=== PATIENT | male | born 1955 ===

== ENCOUNTER 2024-10-04 09:24 | Outpatient (CLI) | payer MEDICARE, BC, SELFPAY ==
--- OUTSIDE RECORDS SUMMARY | 2024-10-04 10:10 | XMS_ITS | Encounter Summary ---
Author Organization [facility] Address [facility] [place] [address] Care Team Providers Care Bench Examiner Name Role Phone Fredy Francisco MD Primary Care Provider [phone] Maoc Pack MD Primary Care Provider [phone] Encounter Details Date Type Department Care Team (Late st Contact Info) Description 12/29/2022 Prep for Procedure [facility] [place] [address] Bowen Bryant MD [address] [facility] [address] [facility] [place] [address] Social History Tobacco Use Types Packs/Day Years Used Date Smoking Tobacco: Never Smokeless Tobacco: Never Alcohol Use Standard Drinks/Week Comments Yes 0 (1 standard drink = 0.6 oz pur e alcohol) Humiliation, Afraid, Rape, and Kick questionnair e Answer Date Recorded Within the last year, have y ou been afraid of your partner or ex-partner? No 11/29/2022 Within the last year, have y ou been humiliated or emotionally abused in other ways by your partner or ex-partner? No Within the last year, have y ou been kicked, hit, slapped, or otherwise physically hurt by your partner or ex-partner? No 11/29/2022 Within the last year, have y ou been raped or forced to have any kind of sexual activity by your partner or ex-partner? No 11/29/2022 AUDIT-C Answer Date Recorded Q1: How often do you have a drink containing alcohol? Patient declined 11/29/2022 Q2: How many drinks containi ng alcohol do you have on a typical day when you are drinking? Patient does not drink 3 Q3: How often do you have si x or more drinks on one occasion? Never 11/29/2022 Overall Financial Resource Strain (CARDIA) Answe r Date Recorded How hard is it for you to pa y for the very basics like food, housing, medical care, and heating? Not very hard 11/29/2022 [facility] - Occupational Stress Questionnaire Answer Date Recorded Do you feel stress - tense, restless, nervous, or anxious, or unable to sleep at night because your mind is troubled all the time - these days? Not at all 11/29/2022 Exercise Vital Sign Answer Date Recorde d On average, how many days pe r week do you engage in moderate to strenuous exercise (like a brisk walk)? 1 day 11/29/2022 On average, how many minutes do you engage in exercise at this level? 30 min 11/29/2022 Hunger Vital Sign Answer Date Recorded Within the past 12 months, y ou worried that your food would run out before you got the money to buy more. Never true 11/30/19 23 Within the past 12 months, t he food you bought just didn't last and you didn't have money to get more. Never true 11/29/2022 PRAPARE - Transportation Answer Date Re corded In the past 12 months, has l ack of transportation kept you from medical appointments or from getting medications? No 01/2023 In the past 12 months, has l ack of transportation kept you from meetings, work, or from getting things needed for daily living? No 11/29/2022 Housing Stability Vital Sign Answer Bert e Recorded In the last 12 months, was t here a time when you were not able to pay the mortgage or rent on time? No 11/29/2022 In the last 12 months, how many places have you lived? 1 11/29/2022 In the last 12 months, was t here a time when you did not have a steady place to sleep or slept in a m[facility]p (including now)? No 11/29/2022 Sex and Gender Information Value Date Recorded Sex Assigned at Male 08/16/2024 9:52 AM FINANCIAL RISK MANAGER Legal Sex Male 12:38 PM FINANCIAL RISK MANAGER Gender Identity Not on file Sexual Orientation Not on file Occupation Industry Job Start Date Job End Date Retired Not on file Not on file Not on file COVID-19 Exposure Response Date Recorded In the last 10 days, have yo u been in contact with someone who was confirmed or suspected to have Coronavirus/COVID-19? No / Unsure 12/31/2022 8:53 AM CDT documented as of this encounter Functional Status * Are you deaf or do you have serious difficulty hearing Answer Date of Assessment Author Status No 11/27/2022 1:16 AM CDT Neil Huang R N Active * Are you blind or do you have serious difficulty seeing, even when wearing glasses? Answer Date of Assessment Author Status No 11/27/2022 1:16 AM CDT Neil Huang R N Active * Do you have serious difficulty walking or climbing stairs? Answer Date of Assessment Author Status No 11/27/2022 1:16 AM CDT Neil Huang R N Active * Do you have difficulty dressing or bathing? Answer Date of Assessment Author Status No 11/27/2022 1:16 AM CDT Neil Huang R N Active * Because of a physical, mental, or emotional condition, do you have difficulty doing errands alone such as visiting a doctor's office or shopping? Answer Date of Assessment Author Status No 11/27/2022 1:16 AM CDT Neil Huang R N Active documented as of this encounter Mental Status * Because of a physical, mental, or emotional condition, do you have serious difficulty concentrating, remembering, or making decisions? Answer Entry Date Author Status No 11/27/2022 1:16 AM CDT Neil Huang RN Active documented in this encounter Plan of Treatment Upcoming Encounters Date Type Department Care Team (Late st Contact Info) Description 10/25/2024 1:00 PM CDT Office Visit [facility] [place] [place] [address] Igor Russo PA [address] [place] [address] 10/30/2024 10:10 AM CDT Laboratory Only [address] [address] Maco Pack MD [address] [place] [address]. [place] [address] 11/06/2024 11:40 AM CDT Office Visit [address] [address] Maco Pack MD [facility] [address] documented as of this encounter Goals Goal Patient Goal Type Associated Problems Recent Progress Patient-Stated? Author Patient will return to prior living situation and remain independent in ADLs upon discharge from hospital Lifestyle No Shweta Verma RN documented as of this encounter Results * (ABNORMAL) BASIC METABOLIC PANEL (12/29/2022 12:00 PM CDT) [facility] GLUCOSE 108(H) 70 - 99 MG/DL 12/29/2022 1:13 PM CDT [facility] BUN 12 7 - 18 MG/DL 12/29/2022 1:13 PM CDT [facility] CREATININE S/P/B 1.06 0.7 - 1.3 MG/DL 12/29/2022 1:13 PM CDT [facility] SODIUM S/P/B 135(L) 136 - 145 MMOL/L 12/29/2022 1:13 PM CDT [facility] POTASSIUM S/P/B 3.9 3.5 - 5.1 MMOL/L 12/29/2022 1:13 PM CDT [facility] CHLORIDE S/P/B 107 100 - 108 MMOL/L 12/29/2022 1:13 PM CDT [facility] CO2 25.6 21 - 32 MMOL/L 12/29/2022 1:13 PM CDT [facility] CALCIUM S/P/B 9.4 8.5 - 10.1 MG/DL 12/29/2022 1:13 PM CDT [facility] ANION GAP 2.4(L) 5 - 15 MMOL/L 12/29/2022 1:13 PM CDT [facility] BUN CREATININE RATIO 11.3 6 - 26 12/29/2022 1:13 PM CDT [facility] GFR ESTIMATE 77(L) >90 ML/MIN/1.7 3 M2 12/29/2022 1:13 PM CDT [facility] Comment: NOTE: eGFR is not calculated for patients <18 years of age. This is an estimated GFR calculation using the new CKD EPI creatinine equation without race and so does not require a correction factor for race. This estimated GFR should not be used for calculating drug doses. 12/29/2022 12:0 0 PM CDT us Bowen Bryant MD LABORATORY Final Res ult [facility] [address] [place] [address], [place] [phone] * (ABNORMAL) CBC W/DIFF AUTOMATED (12/29/2022 12:00 PM CDT) WBC 5.4 4.5 - 11.0 x10'3/uL 12/29/2022 12:52 PM CDT [facility] RBC 4.09(L) 4.70 - 6.10 x10'6/uL 12/29/2022 12:52 PM CDT [facility] HGB 12.9(L) 14.0 - 18.0 G/DL 12/29/2022 12:52 PM CDT [facility] HCT 40.1(L) 43.0 - 54.0 % 12/29/2022 12:52 PM CDT [facility] MCV 98.0(H) 80.0 - 94.0 FL 12/29/2022 12:52 PM CDT [facility] MCH 31.5(H) 27.0 - 31.0 PG 12/29/2022 12:52 PM CDT [facility] MCHC 32.2 32.0 - 36.0 G/DL 12/29/2022 12:52 PM CDT [facility] RDW 13.7 11.5 - 14.5 % 12/29/2022 12:52 PM CDT [facility] PLT 272 130 - 400 x10'3/uL 12/29/2022 12:52 PM CDT [facility] MPV 11.0 9.3 - 12.2 FL 12/29/2022 12:52 PM CDT [facility] DIFFERENTIAL TYPE AUTOMATED DIFFERENTIAL 12/29/2022 12:52 PM CDT [facility] NEUTROPHILS % 54.0 % 12/29/2022 12:52 PM CDT [facility] LYMPHOCYTES % 32.3 % 12/29/2022 12:52 PM CDT [facility] MONOCYTES % 9.6 % 12/29/2022 12:52 PM CDT [facility] EOSINOPHILS 3.5 % 12/29/2022 12:52 PM CDT [facility] BASOPHILS 0.4 % 12/29/2022 12:52 PM CDT [facility] IMMATURE GRANS % 0.2 % 12/30/19 12:52 PM CDT [facility] ABS. NEUTROPHILS TOTAL 2.92 1.80 - 7.70 x10'3/uL 12/29/2022 12:52 PM CDT [facility] ABS. LYMPHOCYTES 1.75 1.00 - 4.80 x10'3/uL 12/29/2022 12:52 PM CDT [facility] ABS. MONOCYTES 0.52 0.30 - 0.82 x10'3/uL 12/29/2022 12:52 PM CDT [facility] ABS. EOSINOPHILS 0.19 0.04 - 0.54 x10'3/uL 12/29/2022 12:52 PM CDT [facility] ABS. BASOPHILS 0.02 0.01 - 0.08 x10'3/uL 12/29/2022 12:52 PM CDT [facility] ABS. IMMATURE GRANULOCYTES 0.01 0.00 - 0.49 x10'3/uL 12/29/2022 12:52 PM CDT [facility] 12/29/2022 12:0 0 PM CDT us Bowen Bryant MD LABORATORY Final Res ult [facility] [address] [place] [address], [place] [phone] * (ABNORMAL) URINALYSIS WI REFLEX TO CULTURE (12/29/2022 11:56 AM CDT) SPECIMEN TYPE URINE CLEAN CATCH 12/29/2022 11:57 AM CDT [facility] COLOR (U) LIGHT ORANGE 12/29/2022 12:56 PM CDT [facility] TRANSPARENCY TURBID 12/29/2022 12:56 PM CDT [facility] SPECIFIC GRAVITY (U) 1.013 1.001 - 1.030 12/29/2022 12:56 PM T [facility] U PH 6.0 5.0 - 9.0 12/29/2022 12:56 PM T [facility] LEUKOCYTES (U) 500(A) NEGATIVE 12/29/2022 12:56 PM CDT [facility] NITRITES NEGATIVE NEGATIVE 12/29/2022 12:56 PM T [facility] PROTEIN (U) 50(H) <30 MG/DL 12/29/2022 12:56 PM T [facility] URINE GLUCOSE NORMAL NORMAL MG/DL 12/29/2022 12:56 PM T [facility] KETONES MG/DL (U) NEGATIVE NEGATIVE MG/DL 12/29/2022 12:56 PM T [facility] UROBILINOGEN NORMAL NORMAL MG/DL 12/29/2022 12:56 PM T [facility] BILIRUBIN (U) NEGATIVE NEGATIVE MG/DL 12/29/2022 12:56 PM T [facility] BLOOD (U) 3+(A) NEGATIVE 12/29/2022 12:56 PM T [facility] CULTURE & SENSITIVITY INDICATED? SPECIMEN SETUP FOR CULTURE 12/29/2022 12:56 PM T [facility] MUCUS RARE /LPF 12/29/2022 12:56 PM T [facility] WBC/HPF 23(H) <6 /HPF 12/29/2022 12:56 PM [facility] RBC/HPF >100(H) <6 /HPF 12/29/2022 12:56 PM T [facility] URINE SPECIMEN OBTAINED BY CLEAN CATCH PROCEDURE / Unknown 12/29/2022 11:56 AM CDT Bowen Bryant MD URINE ORDERABLES Final Re sult [facility] [address] [place] [address], documented in this encounter Visit Diagnoses Diagnosis Preop examination- Primary Preoperative examination, unspecified Uric acid nephrolithiasis Dysuria Calculus of ureter HTN (hypertension) Unspecified essential hypertension Diabetes (CMS/HCC HHS/HCC) documented in this encounter Care Teams Bench Examiner Relationship Specialty Start Date End Date Fredy Francisco MD [address] [address] PCP - General FAMILY PRACTICE 09/20/20 10/10/23 Maco Pack MD [address] [place] [address] PCP - General FAMILY PRACTICE 10/11/23 documented as of this encounter
--- OUTSIDE RECORDS SUMMARY | 2024-10-04 10:10 | XMS_ITS ---
Author Organization [facility] Address [address] [place], [place] [id number] Care Team Providers Care Advertisement Distributor Name Role Phone LAURIE HAZEL Unavailable [phone] Maco Pack Unavailable Unavailable Allergies Allergen (clinical drug ingredient) Drug/Non Drug Allergy documented on EMR Reaction Allergy Type Onset Date Status Lisinopril Unknown Drug Allergy 08/23/2018 activ e REASON FOR VISIT *General care Medications Medication SIG (Take, Route, Frequency, Duration) Notes Start Date End Date Status 24 HR metoprolol succinate 50 MG Extended Release Oral Capsule ORAL 24 HR metoprolol succinate 50 MG Extended Release Oral CapsuleOriginal [id number] HR metoprolol succinate 50 MG Extended Release Oral Capsule *Reorder from [email or web address] for eRx and Interaction Alerts* 08/23/2018 Active metformin hydrochloride 500 MG Oral Tablet ORAL metformin hydrochloride 500 MG Oral TabletOriginal Medicationmetformin hydrochloride 500 MG Oral Tablet *Reorder from [email or web address] for eRx and Interaction Alerts* 08/23/2018 Active Encounters Encounter Location Date Provider Diagnosis [facility] [address] [place], [place] [id number] 08/29/2024 LAURIE HAZEL Fungal infection of nail B35.1 ; Pain in left toe(s) M79.675 ; Hallux rigidus of right foot M20.21 ; Unspecified atherosclerosis of mary's ig[place] arteries of extremities, bilateral legs I70.203 ; Pain in right toe(s) M79.674 and Primary osteoarthritis, right ankle and foot M19.071 Assessments Encounter Date Diagnosis (ICD Code) Assessment Notes Treatment Notes Treatment Clinical Notes Section Notes 08/29/2024 Fungal infection of nail (ICD-10 - B35.1) Nails 1-5 Bilateral were debrided extensively with nail nippers and emery board, reducing length and girth to pink healthy tissue with any subungual debris and necrotic tissue removed 08/29/2024 Pain in left toe(s) (ICD-10 - M79.675) 08/29/2024 Hallux rigidus of right foot (ICD-10 - M20.21) Following skin prep, a total of 3 ccs of a 1-1-1 mix of 0.5% marcaine plain, Kenalog, and dexamethasone sodium phosphate was injected into the patients right first MPJ. 08/29/2024 Unspecified atherosclerosis of mary's igloo arteries of extremities, bilateral legs (ICD-10 - I70.203) 08/29/2024 Pain in right toe(s) (ICD-10 - M79.674) 08/29/2024 Primary osteoarthritis, right ankle and foot (ICD-10 - M19.071) Plan Of Treatment Treatment Notes Assessment Notes Fungal infection of nail Nails 1-5 Bilat eral were debrided extensively with nail nippers and emery board, reducing length and girth to pink healthy tissue with any subungual debris and necrotic tissue removed Hallux rigidus of right foot Following s kin prep, a total of 3 ccs of a 1-1-1 mix of 0.5% marcaine plain, Kenalog, and dexamethasone sodium phosphate was injected into the patients right first MPJ. Next Appt Details Follow Up: 9 weeks, Reason: Provider Name:LAURIE PATIÑO, 10/17/2024 12:40:00 PM, [address], [place], [id number], Provider Name:LAURIE PATIÑO, 11/14/2024 01:20:00 PM, [address], [address], [place], [place], [id number], Progress Notes * KIAH BECERRIL LDOB: [birth year] (68 yo M)Acc No.[id number]:08/29/2024 Patient: KIAH LLANOS Provider: Ash Hazel DPM :1955 A ge:68 Y S ex:Male Date:08/29/2024 Address:[place], [id number] Subjective: * Chief Complaints: * * General care * HPI: H PI: General care P atient presents to the office for diabetic foot care. Patient states that their nails are thickened, elongated and painful. Patient states that it is aggravated by shoe gear. Onset is gradual. Patient denies taking blood thinners. Date last seen by Dr. Pack was 07/2024. Initials sea. * ROS: G eneral / Constitutional: Patient denies c hange in appetite, fatigue, chills, fever.? C ardiovascular: Chest pain d enies. N eurologic: Loss of use of extremity d enies. * Medical History: * Surgical History: * Hospitalization/Major Diagno stic Procedure: * Family History: F ather: PRN - Father: :: Cancer,,known absent . M other: PRN - Mother: . B rother: SIB - Brother: . S ister: SIB - Sister: . * Social History: M igrated Social History: M igrated Social History: History of tobacco use : , Smoking Status : Never smoked. * Medications: T aking24 HR metoprolol succinate 50 MG Extended Release Oral Capsule ORAL , Notes to Pharmacist: 24 HR metoprolol succinate 50 MG Extended Release Oral CapsuleOriginal [id number] HR metoprolol succinate 50 MG Extended Release Oral Capsule *[facility] for [facility] and Interaction Alerts*metformin hydrochloride 500 MG Oral Tablet ORAL , Notes to Pharmacist: metformin hydrochloride 500 MG Oral TabletOriginal Medicationmetformin hydrochloride 500 MG Oral Tablet *[facility] for [facility] and Interaction Alerts*Taking 24 HR metoprolol succinate 50 MG Extended Release Oral Capsule ORAL , Notes to Pharmacist: 24 HR metoprolol succinate 50 MG Extended Release Oral CapsuleOriginal [id number] HR metoprolol succinate 50 MG Extended Release Oral Capsule *[facility] for [facility] and Interaction Alerts*Taking metformin hydrochloride 500 MG Oral Tablet ORAL , Notes to Pharmacist: metformin hydrochloride 500 MG Oral TabletOriginal Medicationmetformin hydrochloride 500 MG Oral Tablet *Reorder from [employer] for eRx and Interaction Alerts* * Allergies: L isinopril: Allergy - Onset Date 08/23/2018 Objective: * Vitals: * Examination: P hysical Examination: Gen: T he patient is awake, alert, well developed, well groomed and well nourished. They are in no apparent distress. . Musc: F oot structure is normal bilateral. Muscle strength is 5/5 to all joints bilaterally. Pain on palpation of right 1st metatarsal phalangeal joint. Limited range of motion noted at the first metatarsal phalangeal joint . Derm: T here is absent hair growth on bilateral feet. There are pigmentary changes of bilateral foot. The skin color is red. The skin texture is thin and shiny. Distal cooling noted in bilateral feet. Nails are thick, discolored, and dystrophic with subungual debris. They are painful to palpation. . Neuro: G rossly intact to light touch bilateral . Vasc: P osterior tibialis pulse 0/4 bilaterally. Dorsalis pedis pulse 0/4 bilaterally. No edema noted. Capillary fill time > 3 seconds to all digits. . Assessment: * Assessment: 1. F ungal infection of nail - B35.1 (Primary) 2 . P ain in left toe(s) - M79.675 3 . H allux rigidus of right foot - M20.21 4 . U nspecified atherosclerosis of mary's ig[place] arteries of extremities, bilateral legs - I70.203 5 . P ain in right toe(s) - M79.674 6 . P rimary osteoarthritis, right ankle and foot - M19.071 Plan: * Treatment: 2. H allux rigidus of right foot Notes: Following skin prep, a total of 3 ccs of a 1-1-1 mix of 0.5% marcaine plain, Kenalog, and dexamethasone sodium phosphate was injected into the patients right first MPJ. * Procedure Codes: 2 0600 DRAIN/INJECT, JOINT/BURSA, Modifiers: RT * Follow Up: 9 weeks * Billing Information: * Visit Code: 86245 Office Visit, Est Pt., Level 3. Modifiers: 25 * Procedure Codes: DRAIN/INJECT, JOINT/BURSA. Modifiers: RT * NT LOADER Sign off status: Completed true * Provider: Ash Hazel DPM Date: 0 08/29/2024 Generated for Zahira Fregoso/Abril on: 0 10/04/2024 10:10 AM CDT History and Physical Notes * HPI (History of Present Illness) Category Sub-Category Detail Notes Category Not es HPI General care Patient presents to the office for diabetic foot care. Patient states that their nails are thickened, elongated and painful. Patient states that it is aggravated by shoe gear. Onset is gradual. Patient denies taking blood thinners. Date last seen by Dr. Pack was 07/2024. Initials sea Examination Category Sub-Category Detail Notes Category Not es Physical Examination Gen: The patient is awake, alert, well developed, well groomed and well nourished. They are in no apparent distress. Vasc: Posterior tibialis p ulse 0/4 bilaterally. Dorsalis pedis pulse 0/4 bilaterally. No edema noted. Capillary fill time > 3 seconds to all digits. Neuro: Grossly intact to li ght touch bilateral Musc: Foot structure is no rmal bilateral. Muscle strength is 5/5 to all joints bilaterally. Pain on palpation of right 1st metatarsal phalangeal joint. Limited range of motion noted at the first metatarsal phalangeal joint Derm: There is absent hair growth on bilateral feet. There are pigmentary changes of bilateral foot. The skin color is red. The skin texture is thin and shiny. Distal cooling noted in bilateral feet. Nails are thick, discolored, and dystrophic with subungual debris. They are painful to palpation.
--- OUTSIDE RECORDS SUMMARY | 2024-10-04 10:10 | XMS_ITS ---
Author Organization [facility] Address [address] [place], [place] [address] Care Team Providers Care Websphere Architect Name Role Phone LAURIE HAZEL Unavailable [phone] Maco Pack Unavailable Unavailable Allergies Allergen (clinical [...] succinate 50 MG Extended Release Oral CapsuleOriginal [id number] HR metoprolol succinate 50 MG Extended Release Oral Capsule *Reorder from [facility] for eRx and Interaction Alerts* 08/23/2018 Active metformin hydrochloride 500 MG Oral Tablet ORAL metformin hydrochloride 500 MG Oral TabletOriginal Medicationmetformin hydrochloride 500 MG Oral Tablet *Reorder from [facility] for eRx and Interaction Alerts* 08/23/2018 Active Encounters Encounter Location Date Provider Diagnosis [facility] [address] [place], [place] [id number] 04/25/2024 LAURIE HAZEL Fungal infection of nail B35.1 ; Pain in left toe(s) M79.675 ; Hallux rigidus of right foot M20.21 ; Unspecified atherosclerosis of [place] arteries of extremities, bilateral legs I70.203 ; Pain in right toe(s) M79.674 and Primary osteoarthritis, right ankle and foot M19.071 Assessments Encounter Date Diagnosis (ICD Code) Assessment Notes Treatment Notes Treatment Clinical Notes Section Notes 04/25/2024 Fungal infection of nail (ICD-10 - B35.1) Nails 1-5 Bilateral were debrided extensively with nail nippers and emery board, reducing length and girth to pink healthy tissue with any subungual debris and necrotic tissue removed 04/25/2024 Pain in left toe(s) (ICD-10 - M79.675) 04/25/2024 Hallux rigidus of right foot (ICD-10 - M20.21) 04/25/2024 Unspecified atherosclerosis of tan[place]ross arteries of extremities, bilateral legs (ICD-10 - I70.203) 04/25/2024 Pain in right toe(s) (ICD-10 - M79.674) 04/25/2024 Primary osteoarthritis, right ankle and foot (ICD-10 - M19.071) 04/25/2024 Other Plan Of Treatment Treatment Notes Assessment Notes Fungal infection of nail Nails 1-5 Bilat eral were debrided extensively with nail nippers and emery board, reducing length and girth to pink healthy tissue with any subungual debris and necrotic tissue removed Next Appt Details Follow Up: 9 weeks, Reason: Provider Name:LAURIE PATIÑO, 10/17/2024 12:40:00 PM, [address], [place], [id number], Provider Name:LAURIE PATIÑO, 11/14/2024 01:20:00 PM, [address], [place], [place], [id number], Progress Notes * KIAH BECERRIL LDOB: 6 (68 yo M)Acc No.[id number]:04/25/2024 Patient: Oswaldo ALFONSO KIAH Lorene Provider: Ash Hazel DPM :1955 A ge:68 Y S ex:Male Date:04/25/2024 Address:[address] [place], [place] [id number] Subjective: * Chief Complaints: * * General care * HPI: H PI: General care P atient presents to the office for diabetic foot care. Patient states that their nails are thickened, elongated and painful. Patient states that it is aggravated by shoe gear. Onset is gradual., Patient denies taking blood thinners., Date last seen by Dr. Pack was 3 months ago., Initials mf. * ROS: G eneral / Constitutional: Patient denies c hange in appetite, fatigue, chills, fever.? C ardiovascular: Chest pain d enies. N eurologic: Loss of use of extremity d enies. * Medical History: * Surgical History: * Hospitalization/Major Diagno stic Procedure: * Family History: F ather: PRN - Father: :: Cancer,,known absent . M other: PRN - Mother: . Claudia nathan: SIB - Brother: . S ister: SIB - Sister: . * Social History: M igrated Social History: M igrated Social History: History of tobacco use : , Smoking Status : Never smoked. * Medications: T aking24 HR metoprolol succinate 50 MG Extended Release Oral Capsule ORAL , Notes to Pharmacist: 24 HR metoprolol succinate 50 MG Extended Release Oral CapsuleOriginal [id number] HR metoprolol succinate 50 MG Extended Release Oral Capsule [facility]*metformin hydrochloride 500 MG Oral Tablet ORAL , Notes to Pharmacist: metformin hydrochloride 500 MG Oral TabletOriginal Medicationmetformin hydrochloride 500 MG Oral Tablet *[facility] Interaction [facility]s*Taking 24 HR metoprolol succinate 50 MG Extended Release Oral Capsule ORAL , Notes to Pharmacist: 24 HR metoprolol succinate 50 MG Extended Release Oral CapsuleOriginal [id number] HR metoprolol succinate 50 MG Extended Release Oral Capsule [facility]*Taking metformin hydrochloride 500 MG Oral Tablet ORAL , Notes to Pharmacist: metformin hydrochloride 500 MG Oral TabletOriginal Medicationmetformin hydrochloride 500 MG Oral Tablet *[facility] and Interaction [facility]* * Allergies: [...] M20.21 4 . U nspecified atherosclerosis of tanacross arteries of extremities, bilateral legs - I70.203 5 . P ain in right toe(s) - M79.674 6 . P rimary osteoarthritis, right ankle and foot - M19.071 Plan: * Treatment: * Procedure Codes: * Follow Up: 9 weeks * Billing Information: * Visit Code: 87272 Office Visit, Est Pt., Level 3. * Procedure Codes: * Sign off status: Completed true * Provider: Ash Hazel DPM Date: Generated for Zahira goldstein/Niles/Abril on: 0 10/04/2024 10:10 AM CDT History and Physical Notes * HPI (History of Present Illness) Category Sub-Category Detail Notes Category Not es HPI General care Patient presents to the office for diabetic foot care. Patient states that their nails are thickened, elongated and painful. Patient states that it is aggravated by shoe gear. Onset is gradual., Patient denies taking blood thinners., Date last seen by Dr. Pack was 3 months ago., Initials mf Examination Category Sub-Category Detail Notes Category Not [...]
--- OUTSIDE RECORDS SUMMARY | 2024-10-04 10:11 | XMS_ITS | Referral Summary ---
Author Organization [facility] Address [address] [place] [address] Care Team Providers Care Ceramic Coater Machine Name Role Phone Unavailable Primary Care Provider Unavailabl e Source Comments [facility],non-owned Affiliates and Associated Physician Practices is amultiple site organization consisting of ambulatory clinics and hospital sitesin [place], [place] and [place]. This disclosure is being madepursuant to the Care Everywhere program and may not contain all information available regarding this patient. Last updated 18.[facility] Social History Tobacco Use Types Packs/Day Years Used Date Smoking Tobacco: Never Assessed Sex and Gender Information Value Date Recorded Sex Assigned at Not on file Gender Identity Not on file Sexual Orientation Not on file Plan of Treatment Not on file Juan Amanda Personal/Family Self 1955
--- OUTSIDE RECORDS SUMMARY | 2024-10-04 10:11 | XMS_ITS | Patient Health Record ---
Author Organization [facility] Address [address] [place], [place] [id number] Care Team Providers Care Oncology Social Worker Name Role Phone LAURIE BILLY Unavailable [phone] Maco Pack Unavailable Unavailable Allergies Allergen (clinical drug ingredient) Drug/Non Drug Allergy documented on EMR Reaction Allergy Type Onset Date Status Lisinopril Unknown Drug Allergy 08/23/2018 activ e Reason For Referral No Information Medications Medication SIG (Take, Route, Frequency, Duration) Notes Start Date End Date Status 24 HR metoprolol succinate 50 MG Extended Release Oral Capsule ORAL 24 HR metoprolol succinate 50 MG Extended Release Oral CapsuleOriginal [id number] HR metoprolol succinate 50 MG Extended Release Oral Capsule *Reorder from [facility] for eRx and Interaction Alerts* 08/23/2018 Active metformin hydrochloride 500 MG Oral Tablet ORAL metformin hydrochloride 500 MG Oral TabletOriginal Medicationmetformin hydrochloride 500 MG Oral Tablet *Reorder from [facility] for eRx and Interaction Alerts* 08/23/2018 Active Immunizations Vaccine Route Administration Date Status Comme nts Influenza, high dose seasonal Unknown 07/24/2022 Admini stered Influenza, high dose seasonal Unknown 08/13/2023 Admini stered Vital Signs Height-cm 167.64 cm 06/27/2024 Weight-kg 111.13 kg 06/27/2024 Height 66.00 in 06/27/2024 Weight 245 lbs 06/27/2024 BMI 39.54 kg/m2 06/27/2024 Encounters Encounter Location Date Provider Diagnosis [facility] [address] [place], [place] [id number] 12/06/2023 LAURIE [place] Fungal infection of nail B35.1 ; Pain in left toe(s) M79.675 ; Hallux rigidus of right foot M20.21 ; Unspecified atherosclerosis of [place] arteries of extremities, bilateral legs I70.203 ; Pain in right toe(s) M79.674 and Primary osteoarthritis, right ankle and foot M19.071 [facility] [address] [id number] 02/07/2024 LAURIE [place] Fungal infection of nail B35.1 ; Pain in left toe(s) M79.675 ; Hallux rigidus of right foot M20.21 ; Unspecified atherosclerosis of [place] arteries of extremities, bilateral legs I70.203 ; Pain in right toe(s) M79.674 and Primary osteoarthritis, right ankle and foot M19.071 [facility] [address] [id number] 04/25/2024 LAURIE [place] Fungal infection of nail B35.1 ; Pain in left toe(s) M79.675 ; Hallux rigidus of right foot M20.21 ; Unspecified atherosclerosis of [place] arteries of extremities, bilateral legs I70.203 ; Pain in right toe(s) M79.674 and Primary osteoarthritis, right ankle and foot M19.071 [facility] [address] [id number] 06/27/2024 LAURIE [place] Fungal infection of nail B35.1 ; Pain in left toe(s) M79.675 ; Hallux rigidus of right foot M20.21 ; Unspecified atherosclerosis of [place] arteries of extremities, bilateral legs I70.203 ; Pain in right toe(s) M79.674 and Primary osteoarthritis, right ankle and foot M19.071 [facility] [address] [id number] 08/29/2024 LAURIE [place] Fungal infection of nail B35.1 ; Pain in left toe(s) M79.675 ; Hallux rigidus of right foot M20.21 ; Unspecified atherosclerosis of [place] arteries of extremities, bilateral legs I70.203 ; Pain in right toe(s) M79.674 and Primary osteoarthritis, right ankle and foot M19.071 Assessments Encounter Date Diagnosis (ICD Code) Assessment Notes Treatment Notes Treatment Clinical Notes Section Notes 12/06/2023 Pain in left toe(s) (ICD-10 - M79.675) 12/06/2023 Fungal infection of nail (ICD-10 - B35.1) Nails 1-5 Bilateral were debrided extensively with nail nippers and emery board, reducing length and girth to pink healthy tissue with any subungual debris and necrotic tissue removed 02/07/2024 Fungal infection of nail (ICD-10 - B35.1) Nails 1-5 Bilateral were debrided extensively with nail nippers and emery board, reducing length and girth to pink healthy tissue with any subungual debris and necrotic tissue removed 04/25/2024 Fungal infection of nail (ICD-10 - B35.1) Nails 1-5 Bilateral were debrided extensively with nail nippers and emery board, reducing length and girth to pink healthy tissue with any subungual debris and necrotic tissue removed 06/27/2024 Fungal infection of nail (ICD-10 - B35.1) Nails 1-5 Bilateral were debrided extensively with nail nippers and emery board, reducing length and girth to pink healthy tissue with any subungual debris and necrotic tissue removed 08/29/2024 Fungal infection of nail (ICD-10 - B35.1) Nails 1-5 Bilateral were debrided extensively with nail nippers and emery board, reducing length and girth to pink healthy tissue with any subungual debris and necrotic tissue removed 08/29/2024 Pain in left toe(s) (ICD-10 - M79.675) 06/27/2024 Pain in left toe(s) (ICD-10 - M79.675) 04/25/2024 Pain in left toe(s) (ICD-10 - M79.675) 02/07/2024 Pain in left toe(s) (ICD-10 - M79.675) 12/06/2023 Hallux rigidus of right foot (ICD-10 - M20.21) 12/06/2023 Unspecified atherosclerosis of [place] arteries of extremities, bilateral legs (ICD-10 - I70.203) 02/07/2024 Hallux rigidus of right foot (ICD-10 - M20.21) 04/25/2024 Hallux rigidus of right foot (ICD-10 - M20.21) 06/27/2024 Hallux rigidus of right foot (ICD-10 - M20.21) 08/29/2024 Hallux rigidus of right foot (ICD-10 - M20.21) Following skin prep, a total of 3 ccs of a 1-1-1 mix of 0.5% marcaine plain, Kenalog, and dexamethasone sodium phosphate was injected into the patients right first MPJ. 08/29/2024 Unspecified atherosclerosis of [place] arteries of extremities, bilateral legs (ICD-10 - I70.203) 06/27/2024 Unspecified atherosclerosis of [place] arteries of extremities, bilateral legs (ICD-10 - I70.203) 02/07/2024 Unspecified atherosclerosis of [place] arteries of extremities, bilateral legs (ICD-10 - I70.203) 04/25/2024 Unspecified atherosclerosis of [place] arteries of extremities, bilateral legs (ICD-10 - I70.203) 12/06/2023 Pain in right toe(s) (ICD-10 - M79.674) 12/06/2023 Primary osteoarthritis, right ankle and foot (ICD-10 - M19.071) 02/07/2024 Pain in right toe(s) (ICD-10 - M79.674) 04/25/2024 Pain in right toe(s) (ICD-10 - M79.674) 06/27/2024 Pain in right toe(s) (ICD-10 - M79.674) 08/29/2024 Pain in right toe(s) (ICD-10 - M79.674) 04/25/2024 Primary osteoarthritis, right ankle and foot (ICD-10 - M19.071) 02/07/2024 Primary osteoarthritis, right ankle and foot (ICD-10 - M19.071) 06/27/2024 Primary osteoarthritis, right ankle and foot (ICD-10 - M19.071) 08/29/2024 Primary osteoarthritis, right ankle and foot (ICD-10 - M19.071) 12/06/2023 Other Following skin prep, a total of 3 ccs of a 1-1-1 mix of 0.5% marcaine plain, Kenalog, and dexamethasone sodium phosphate was injected into the patients right first MPJ. 02/07/2024 Other Following skin prep, a total of 3 ccs of a 1-1-1 mix of 0.5% marcaine plain, Kenalog, and dexamethasone sodium phosphate was injected into the patients right first MPJ. 04/25/2024 Other Plan Of Treatment Next Appt Details Provider Name:LAURIE PATIÑO, 10/17/2024 12:40:00 PM, [address], [place], [place], [id number], Provider Name:LAURIE PATIÑO, 11/14/2024 01:20:00 PM, [address], [place], [place], [id number], Insurance Providers Payer Name Payer Address Payer Phone Subscriber Number Group Number Insured Name Patient Relationship to Insured Coverage Start Date Coverage End Date [facility] [address] [place] [address] [phone] [id number] KIAH BECERRIL Self - patient is the insured [facility] ([facility]) ATTN CLAIMS [address] [place] [address] [id number] KIAH BECERRIL Self - patient is the insured for [employer] ([employer]) [address] [place], [place] [phone] [id number] KIAH BECERRIL Self - patient is the insured
--- OUTSIDE RECORDS SUMMARY | 2024-10-04 10:11 | XMS_ITS | Encounter Summary ---
Author Organization [facility] Address [facility] [place] [address] Care Team Providers Care Energy Auditor Name Role Phone Maco Pack MD Primary Care Provider [phone] Encounter Details Date Type Department Care Team (Late st Contact Info) Description 11/19/2023 Kaizena Message Enc [facility] Medical Group Family Medicine [facility] [address] [place] [address] Maoc Pack MD [address] [facility] [place] [address] Follow up on hemorrhoids Social History Tobacco Use Types Packs/Day Years Used Date Smoking Tobacco: Never Smokeless Tobacco: Never Alcohol Use Standard Drinks/Week Comments Not Currently 0 (1 standard drink = 0.6 oz pur e alcohol) Stopped at age 19 Humiliation, Afraid, Rape, and Kick questionnair e [...] you are drinking? Patient does not drink Q3: How often do you have si x or more drinks on one occasion? Never 11/29/2022 Overall Financial Resource Strain (CARDIA) Answe r Date Recorded How hard is it for you to pa y for the very basics like food, housing, medical care, and heating? Not very hard 11/29/2022 PHQ-2 Answer Date Recorded Patient Health Questionnaire-2 Score 0 10/11/2023 [facility] of Occupat ional Health - Occupational Stress [...] place to sleep or slept in a senior care (including now)? No 11/29/2022 Sex and Gender Information Value Date Recorded Sex Assigned at Male 08/16/2024 9:52 AM SCANNER SUPERVISOR Legal Sex Male 12:38 PM SCANNER SUPERVISOR Gender Identity Not on file Sexual Orientation Not on file Occupation Industry Job Start Date Job End Date Retired Not on file Not on file Not on file documented as of this encounter Functional Status [...] CDT Neil Huang R N Active documented in this encounter Plan of Treatment Upcoming Encounters Date Type Department Care Team (Late st Contact Info) Description 10/25/2024 1:00 PM CDT Office Visit [facility] Medical [facility] Orthopedic & Sports Medicine - [place] [address] [place] [address] Igor Russo PA [address] [place] [address] 10/30/2024 10:10 AM CDT Laboratory Only [address] [address] Maco Pack MD [address] [place] [address]. [place] [address] 11/06/2024 11:40 AM CDT Office Visit [facility] - [address] [place] [address] Maco Pack MD [address] [place] [address]. [place] [address] documented as of this encounter Goals Goal Patient Goal Type Associated Problems Recent Progress Patient-Stated? Author Patient will return to prior living situation and remain independent in ADLs upon discharge from hospital Lifestyle No Shweta Verma, RN documented as of this encounter Visit Diagnoses Not on filedocumented in this encounter Care Teams Energy Auditor Relationship Specialty Start Date End Date Maco Pack MD [address] [place] [address]. [place] [address] PCP - General FAMILY PRACTICE 10/11/23 documented as of this encounter
--- OUTSIDE RECORDS SUMMARY | 2024-10-04 10:11 | XMS_ITS | Encounter Summary ---
Author Organization [facility] Address [facility] [place] [address] Care Team Providers Care Credentialing Assistant Name Role Phone Fredy Francisco MD Primary Care Provider [phone] Maco Pack MD Primary Care Provider [phone] Encounter Details Date Type Department Care Team (Late st Contact Info) Description 03/10/2023 Prep for Procedure [facility] Pre-Admission Testing [place], [place] [id number] Bowen Bryant MD 3 [facility] [address] [facility] [place], [place] [id number] Social History Tobacco Use Types Packs/Day Years [...] care, and heating? Not very hard 11/29/2022 [facility] [place] of Occupat ional Health - Occupational Stress [...] place to sleep or slept in a snf (including now)? No 11/29/2022 Sex and Gender Information Value Date Recorded Sex Assigned at Male 08/16/2024 9:52 AM CEO ZIFF DAVIS Legal Sex Male 12:38 PM CEO ZIFF DAVIS Gender Identity Not on file Sexual Orientation [...] Description 10/25/2024 1:00 PM CDT Office Visit [facility] - [place] [address] [place] [address] Igor Russo PA [address] [place] [address] 10/30/2024 10:10 AM CDT Laboratory Only [facility] [address] [place] [address] Maco Pack MD [facility] [place] [address] 11/06/2024 11:40 AM CDT Office Visit [facility] [address] [place] [address] Maco Pack MD [address] [facility] [place] [address] documented as of this encounter Goals Goal Patient Goal Type Associated Problems Recent Progress Patient-Stated? Author Patient will return to prior living situation and remain independent in ADLs upon discharge from hospital Lifestyle No Shweta Verma RN documented as of this encounter Results * PROTIME/INR, VENOUS (03/10/2023 4:53 PM CDT) PROTIME 12.3 10.2 - 12.9 SEC 03/10/2023 5:29 PM CDT [facility] INR 1.0 03/10/2023 5:29 PM CDT [facility] Comment: Recommended INR Therapeutic Goals: 2.0-3.0 Routine Therapy 2.5-3.5 Mechanical Prosthetic Valves (High Risk) 03/10/2023 4:53 PM CDT us Bowen Bryant MD LABORATORY Final Res ult [facility] [address] [place] [address], [place] [phone] * PTT, PARTIAL THROMBOPLASTIN TIME (03/10/2023 4:53 PM CDT) PTT 33.2 25.1 - 36.5 SEC 03/10/2023 5:29 PM CDT [facility] 03/10/2023 4:53 PM CDT Bowen Bryant MD LABORATORY Final Res ult [facility] [address] [place] [address], [place] [phone] * (ABNORMAL) BASIC METABOLIC PANEL (03/10/2023 4:53 PM CDT) [facility] GLUCOSE 151(H) 70 - 99 MG/DL 03/10/2023 5:33 PM CDT [facility] BUN 14 7 - 18 MG/DL 03/10/2023 5:33 PM CDT [facility] CREATININE S/P/B 1.07 0.7 - 1.3 MG/DL 03/10/2023 5:33 PM CDT [facility] SODIUM S/P/B 141 136 - 145 MMOL/L 03/10/2023 5:33 PM CDT [facility] POTASSIUM S/P/B 3.8 3.5 - 5.1 MMOL/L 03/10/2023 5:33 PM CDT [facility] CHLORIDE S/P/B 108 100 - 108 MMOL/L 03/10/2023 5:33 PM CDT [facility] CO2 29.0 21 - 32 MMOL/L 03/10/2023 5:33 PM CDT [facility] CALCIUM S/P/B 9.5 8.5 - 10.1 MG/DL 03/10/2023 5:33 PM CDT [facility] ANION GAP 4.0(L) 5 - 15 MMOL/L 03/10/2023 5:33 PM CDT [facility] BUN CREATININE RATIO 13.1 6 - 26 03/10/2023 5:33 PM CDT [facility] GFR ESTIMATE 76(L) >90 ML/MIN/1.7 3 M2 03/10/2023 5:33 PM CDT [facility] Comment: NOTE: eGFR is not calculated for patients <18 years of age. This is an estimated GFR calculation using the new CKD EPI creatinine equation without race and so does not require a correction factor for race. This estimated GFR should not be used for calculating drug doses. 03/10/2023 4:53 PM CDT us Bowen Bryant MD LABORATORY Final Res ult [facility] [address] [place] [address], * (ABNORMAL) CBC W/DIFF AUTOMATED (03/10/2023 4:53 PM CDT) WBC 5.3 4.5 - 11.0 x10'3/uL 03/10/2023 5:14 PM CDT [facility] RBC 4.24(L) 4.70 - 6.10 x10'6/uL 03/10/2023 5:14 PM CDT [facility] HGB 13.5(L) 14.0 - 18.0 G/DL 03/10/2023 5:14 PM CDT [facility] HCT 43.0 43.0 - 54.0 % 03/10/2023 5:14 PM CDT [facility] MCV 101.4(H) 80.0 - 94.0 FL 03/10/2023 5:14 PM CDT [facility] MCH 31.8(H) 27.0 - 31.0 PG 03/10/2023 5:14 PM CDT [facility] MCHC 31.4(L) 32.0 - 36.0 G/DL 03/10/2023 5:14 PM CDT [facility] RDW 13.3 11.5 - 14.5 % 03/10/2023 5:14 PM CDT [facility] PLT 234 130 - 400 x10'3/uL 03/10/2023 5:14 PM CDT [facility] MPV 10.9 9.3 - 12.2 FL 03/10/2023 5:14 PM CDT [facility] DIFFERENTIAL TYPE AUTOMATED DIFFERENTIAL 03/10/2023 5:14 PM CDT [facility] NEUTROPHILS % 47.2 % 03/10/2023 5:14 PM CDT [facility] LYMPHOCYTES % 37.9 % 03/10/2023 5:14 PM CDT [facility] MONOCYTES % 10.2 % 03/10/2023 5:14 PM CDT [facility] EOSINOPHILS 4.1 % 03/10/2023 5:14 PM CDT [facility] BASOPHILS 0.6 % 03/10/2023 5:14 PM CDT [facility] IMMATURE GRANS % 0.0 % 03/10/20 5:14 PM CDT [facility] ABS. NEUTROPHILS TOTAL 2.51 1.80 - 7.70 x10'3/uL 03/10/2023 5:14 PM CDT [facility] ABS. LYMPHOCYTES 2.01 1.00 - 4.80 x10'3/uL 03/10/2023 5:14 PM CDT [facility] ABS. MONOCYTES 0.54 0.30 - 0.82 x10'3/uL 03/10/2023 5:14 PM CDT [facility] ABS. EOSINOPHILS 0.22 0.04 - 0.54 x10'3/uL 03/10/2023 5:14 PM CDT [facility] ABS. BASOPHILS 0.03 0.01 - 0.08 x10'3/uL 03/10/2023 5:14 PM CDT [facility] ABS. IMMATURE GRANULOCYTES 0.00 0.00 - 0.49 x10'3/uL 03/10/2023 5:14 PM CDT [facility] 03/10/2023 4:53 PM CDT Bowen Bryant MD LABORATORY Final Res ult Performing Organization Address City/[facility]/ZIP Co de Phone Number [facility] [address] [place] [address], * CULTURE URINE (03/10/2023 4:50 PM CDT) SPEC DESCRIPTION URINE CLEAN CATCH 03/10/2023 4:50 PM CDT [facility] SPECIAL REQUESTS NO SPECIAL REQUEST 03/10/2023 4:50 PM CDT [facility] CULTURE RESULT NO GROWTH 2 DAYS 03/12/2023 8:39 AM CDT [facility] URINE SPECIMEN OBTAINED BY CLEAN CATCH PROCEDURE / Unknown 03/10/2023 4:50 PM CDT 03/10/2023 4:51 PM CDT Bowen Bryant MD MICROBIOLOGY - GENERAL OR DERABLES Final Result [facility] [address] [place] [address], * (ABNORMAL) URINALYSIS (03/10/2023 4:50 PM CDT) SPECIMEN TYPE URINE CLEAN CATCH 03/10/2023 4:50 PM CDT [facility] COLOR (U) LIGHT YELLOW 03/10/2023 5:19 PM CDT [facility] TRANSPARENCY CLEAR 03/10/2023 5:19 PM CDT [facility] SPECIFIC GRAVITY (U) 1.027 1.001 - 1.030 03/10/2023 5:19 PM CDT [facility] U PH 6.0 5.0 - 9.0 03/10/2023 5:19 PM CDT [facility] LEUKOCYTES (U) 25(A) NEGATIVE 03/10/2023 5:19 PM CDT [facility] NITRITES NEGATIVE NEGATIVE 03/10/2023 5:19 PM CDT [facility] PROTEIN RANDOM (U) 20 <30 MG/DL 03/10/2023 5:19 PM CDT [facility] GLUCOSE (U) NORMAL NORMAL MG/DL 03/10/2023 5:19 PM CDT [facility] KETONES MG/DL (U) NEGATIVE NEGATIVE MG/DL 03/10/2023 5:19 PM CDT [facility] UROBILINOGEN NORMAL NORMAL MG/DL 03/10/2023 5:19 PM CDT [facility] BILIRUBIN (U) NEGATIVE NEGATIVE MG/DL 03/10/2023 5:19 PM CDT [facility] BLOOD (U) NEGATIVE NEGATIVE 03/10/2023 5:19 PM CDT [facility] MUCUS RARE /LPF 03/10/2023 5:19 PM CDT [facility] WBC/HPF 8(H) <6 /HPF 03/10/2023 5:19 PM CDT [facility] RBC/HPF 11(H) <6 /HPF 03/10/2023 5:19 PM CDT [facility] CA OXALATE CRYSTALS RARE /HPF 03/10/2023 5:19 PM CDT [facility] SQUAMOUS EPITHELIALS RARE /HPF 03/10/2023 5:19 PM CDT [facility] URINE SPECIMEN OBTAINED BY CLEAN CATCH PROCEDURE / Unknown 03/10/2023 4:50 PM CDT us Bowen Bryant MD URINE ORDERABLES Final Re sult [facility] [address] [place] [address], [place] [phone] documented in this encounter Visit Diagnoses Diagnosis Calcium kidney stone- Primary Calculus of kidney Dysuria Right ureteral stone Calculus of ureter Hematuria Hematuria, unspecified documented in this encounter Care Teams Credentialing Assistant Relationship Specialty Start Date End Date Fredy Francisco MD [address] [address] PCP - General FAMILY PRACTICE 09/20/20 10/10/23 Maco Pack MD [address] [place] [address] PCP - General FAMILY PRACTICE 10/11/23 documented as of this encounter
--- OUTSIDE RECORDS SUMMARY | 2024-10-04 10:11 | XMS_ITS ---
Author Organization [facility] Address [address] [place], [place] [id number] Care Team Providers Care Pressing Machine Operator Name Role Phone LAURIE HAZEL Unavailable [phone] Maco Pack Unavailable Unavailable Allergies Allergen (clinical [...] succinate 50 MG Extended Release Oral CapsuleOriginal [id number] HR metoprolol succinate 50 MG Extended Release Oral Capsule *Reorder from [employer] for eRx and Interaction Alerts* 08/23/2018 Active metformin hydrochloride 500 MG Oral Tablet ORAL metformin hydrochloride 500 MG Oral TabletOriginal Medicationmetformin hydrochloride 500 MG Oral Tablet *Reorder from [facility] for eRx and Interaction Alerts* 08/23/2018 Active Vital Signs Weight 245 lbs 06/27/2024 Weight-kg 111.13 kg 06/27/2024 Height 66.00 in 06/27/2024 Height-cm 167.64 cm 06/27/2024 BMI 39.54 kg/m2 06/27/2024 Encounters Encounter Location Date Provider Diagnosis [facility] [address] [place], [place] [id number] 06/27/2024 LAURIE HAZEL Fungal infection of nail B35.1 ; Pain in left toe(s) M79.675 ; Hallux rigidus of right foot M20.21 ; Unspecified atherosclerosis of cher[place] arteries of extremities, bilateral legs I70.203 ; Pain in right toe(s) M79.674 and Primary osteoarthritis, right ankle and foot M19.071 Assessments Encounter Date Diagnosis (ICD Code) Assessment Notes Treatment Notes Treatment Clinical Notes Section Notes 06/27/2024 Fungal infection of nail (ICD-10 - B35.1) Nails 1-5 Bilateral were debrided extensively with nail nippers and emery board, reducing length and girth to pink healthy tissue with any subungual debris and necrotic tissue removed 06/27/2024 Pain in left toe(s) (ICD-10 - M79.675) 06/27/2024 Hallux rigidus of right foot (ICD-10 - M20.21) 06/27/2024 Unspecified atherosclerosis of cher-ae [place] arteries of extremities, bilateral legs (ICD-10 - I70.203) 06/27/2024 Pain in right toe(s) (ICD-10 - M79.674) 06/27/2024 Primary osteoarthritis, right ankle and foot [...] 10/17/2024 12:40:00 PM, [address], [place], [place], [id number], Provider Name:LAURIE PATIÑO, 11/14/2024 01:20:00 PM, [address], [place], [place], [id number], Progress Notes * KIAH BECERRIL LDOB: (68 yo M)Acc No.[id number]:06/27/2024 Patient: KIAH LLANOS Provider: Ash Hazel DPM :1955 A ge:68 Y S ex:Male Date:06/27/2024 Address:[address], [id number] Subjective: * Chief Complaints: * * General care * HPI: H PI: General care Devika leonard presents to the office for diabetic foot care. Patient states that their nails are thickened, elongated and painful. Patient states that it is aggravated by shoe gear. Onset is gradual. Patient denies taking blood thinners. Date last seen by Dr. Pack was 12/2023. Initials sea. * ROS: G eneral / Constitutional: Patient denies c hange in appetite, fatigue, chills, fever.? C ardiovascular: Chest pain d enies. N eurologic: Loss of use of extremity d enies. * Medical History: * Surgical History: * Hospitalization/Major Diagno stic Procedure: * Family History: F ather: PRN - Father: :: Cancer,,known absent . M other: PRN - Mother: . B giler: SIB - Brother: . S ister: SIB - Sister: . * Social History: M igrated Social History: M igrated Social History: History of tobacco use : , Smoking Status : Never smoked. * Medications: T aking24 HR metoprolol succinate 50 MG Extended Release Oral Capsule ORAL , Notes to Pharmacist: 24 HR metoprolol succinate 50 MG Extended Release Oral CapsuleOriginal [id number] HR metoprolol succinate 50 MG Extended Release Oral Capsule *[facility] Interaction Alert[facility]*metformin hydrochloride 500 MG Oral Tablet ORAL , Notes to Pharmacist: metformin hydrochloride 500 MG Oral TabletOriginal Medicationmetformin hydrochloride 500 MG Oral Tablet *[facility] and Interaction Alerts*Taking 24 HR metoprolol succinate 50 MG Extended Release Oral Capsule ORAL , Notes to Pharmacist: 24 HR metoprolol succinate 50 MG Extended Release Oral CapsuleOriginal [id number] HR metoprolol succinate 50 MG Extended Release Oral Capsule *[facility] and Interaction Alerts*Taking metformin hydrochloride 500 MG Oral Tablet ORAL , Notes to Pharmacist: metformin hydrochloride 500 MG Oral TabletOriginal Medicationmetformin hydrochloride 500 MG Oral Tablet *[facility] and Interaction Alerts* * Allergies: L isinopril: Allergy - Onset Date 08/23/2018 Objective: * Vitals: W t:245lbs, Wt-k.13 kg, Ht: 66.00 in, Ht-cm: 167.64 cm, BMI:39.54Index, Body Surface Area: 2.27. * Examination: P hysical Examination: Gen: T [...] M20.21 4 . U nspecified atherosclerosis of cher[place] arteries of extremities, bilateral legs - I70.203 5 . P ain in right toe(s) - M79.674 6 . P rimary osteoarthritis, right ankle and foot - M19.071 Plan: * Treatment: * Procedure Codes: * Follow Up: 9 weeks * Billing Information: * Visit Code: 43938 Office Visit, Est Pt., Level 3. * Procedure Codes: * ENCY COUNTER Sign off status: Completed true * Provider: Ash Hazel DPM Date: 1 08/28/2023 Generated for Zahira goldstein/Niles/Abril on: 0 10/04/2024 [...] Date last seen by Dr. Pack was 12/2023. Initials sea Examination Category Sub-Category Detail Notes [...]
--- OUTSIDE RECORDS SUMMARY | 2024-10-04 10:11 | XMS_ITS | Clinical Summary ---
Author Organization [facility] Address [address] [place] [address] Care Team Providers Care Four [place] Former Machine Operator Name Role Phone Maco Pack MD Primary Care Provider [phone] Allergies Active Allergy Reactions Criticality Noted Date Comments Lisinopril Angioedema 09/26/2020 Medications azelastine (ASTELIN) 0.1 % nasal spray 1 spray by Nasal route 2 (two) times daily as needed for Rhinitis. 023 Active rosuvastatin (CRESTOR) 10 MG tabletIndicatio ns:Dyslipidemia Take 1 tablet (10 mg total) by mouth nightly at bedtime. 90 tablet 3 024 Active Loratadine 10 MG CapIndications: Environmental allergies Take 10 mg by mouth 2 (two) times a day. 180 capsule 3 024 Active potassium citrate CR (UROCIT-K) 10 MEQ (1080 MG) tablet Take 1 tablet (10 mEq total) by mouth daily. [address] 1 Pad rectally as needed. Active REFRESH TEARS 0.5 % Solution ophthalmic solution Active olopatadine (PATANOL) 0.1 % ophthalmic solution OLOPATADINE HCL 0.1% SOLN,OPH Active INSTILL 1 DROP IN BOTH EYES TWICE DAILY NEEDED FOR ALLERGIC CONJUNCTIVITIS AFTER INSTILLING, WAIT 10 MINUTES BEFORE INSERTING CONTACT LENSES FOR ALLERGIC CONJUNCTIVITIS Nov 10, 2023 5 Nov 10, 2024 [id number] Nov 11, 2023 ALYSSA SERRATO [facility] 024 Active TRUEPLUS INSULIN SYRINGE 31G X 5/16 1 ML Misc 024 Active propranolol (INDERAL) 40 MG tabletIndicatio ns:Essential hypertension,Tr emor TAKE 1 TABLET(40 MG) BY MOUTH TWICE DAILY 180 tablet 024 Active FLUoxetine (PROZAC) 20 MG tabletIndicatio ns:Depression, unspecified depression type Take 1 tablet (20 mg total) by mouth daily. 30 tablet 2 025 Active Continuous Glucose Sensor (DEXCOM G7 SENSOR) MiscIndications :Type 2 diabetes mellitus without complication, without long-term current use of insulin ([facility]) Use reach sensor for 10d before replacing. 3 each 2 025 Active Continuous Glucose Benefits Sales Consultant (DEXCOM G7 LEGAL INTERN) DeviceIndicatio ns:Type 2 diabetes mellitus without complication, without long-term current use of insulin ([facility]) Use as directed to monitor blood glucose. 1 each 025 Active sildenafil (VIAGRA) 100 MG tabletIndicatio ns:Erectile dysfunction, unspecified erectile dysfunction type TAKE 1 TABLET BY MOUTH DAILY DIRECTED NEEDED FOR ERECTILE DYSFUNCTION 30 tablet 025 Active amLODIPine (NORVASC) 10 MG tabletIndicatio ns:Essential hypertension TAKE 1 TABLET(10 MG) BY MOUTH DAILY 90 tablet 3 025 Active metFORMIN (GLUCOPHAGE) 500 MG tabletIndicatio ns:Type 2 diabetes mellitus without complication, without long-term current use of insulin ([facility]) TAKE 2 TABLETS(1000 MG) BY MOUTH TWICE DAILY WITH MEALS 360 tablet 3 025 Active metFORMIN (GLUCOPHAGE) 500 MG tabletIndicatio ns:Type 2 diabetes mellitus without complication, without long-term current use of insulin ([facility] HHS/HCC) Take 2 tablets (1,000 mg total) by mouth 2 (two) times daily with meals. 360 tablet 3 024 2024 Discontinued amLODIPine (NORVASC) 10 MG tabletIndicatio ns:Essential hypertension Take 1 tablet (10 mg total) by mouth daily. 90 tablet 3 024 2024 Discontinued sildenafil (VIAGRA) 100 MG tabletIndicatio ns:Erectile dysfunction, unspecified erectile dysfunction type Take 1 tablet (100 mg total) by mouth as needed for Erectile Dysfunction. 30 tablet 025 2024 Discontinued Active Problems Problem Noted Date Diagnosed Date Depression, unspecified depression type 08/07/19 25 Tremor 12/13/2023 Bilateral primary osteoarthritis of knee 024 Hemorrhoids, unspecified hemorrhoid type 024 Environmental allergies 10/11/2023 Chronic pain of both knees 10/11/2023 Class 2 severe obesity due t o excess calories with serious comorbidity and body mass index (BMI) of 36.0 to 36.9 in adult 10/11/2023 Nephrolithiasis 03/16/2023 Ureteral calculi 01/05/2023 Sepsis ([facility]) 11/26/2022 Erectile dysfunction, unspecified erectile dysfu nction type 09/29/2021 Acute pain of right shoulder 11/20/2020 Type 2 diabetes mellitus wit hout complication, without long-term current use of insulin ([facility]) 09/26/2020 Dyslipidemia 09/26/2020 Essential hypertension 09/26/2020 Resolved Problems Problem Noted Date Diagnosed Date Resolved Date Routine general medical exam ination at a health care facility 09/26/2020 10/05/2022 Encounters Date Type Department Care Team Description 08/16/2024 9:55 AM LIVESTOCK BREEDER - 08/16/2024 11:59 PM LIVESTOCK BREEDER Hospital Encounter [facility] [address] Bowen Bryant MD Discharge Disposition: Home or Self Care (Routine Discharge) 08/16/2024 Orders Only [facility] [address] Bowen Bryant MD 08/16/2024 Travel 08/08/2024 Telephone [facility] Family Medicine [address] [address] Maco Pack MD Prior Authorization 08/07/2024 1:40 PM LIVESTOCK BREEDER Office Visit [facility] Family Medicine [facility] [address] [place] [address] Maco Pack MD Diabetes ( 6 month F/U); Knee Pain 08/07/2024 Scan HEALTH INFO SRVCS Scanned, Doc [facility] 08/07/2024 Travel 07/17/[address] [facility] [address] [place] [address] Dakota Van C, PT from Last 3 Months Immunizations Name Administration Dates Next Due Fluzone High Dose - >Age 65 (Prefilled Syringe) 05/20/2022 Influenza Adult (Generic) 08/10/2023,05/20/2022, 05/20/2022 PFIZER COVID-19 (12+) MRNA, LNP-S, PF, SHARON-SUCROSE, 30 MCG/0.3 ML (COMIRNATY) 08/07/2024 PFIZER COVID-19 (TOMLINSON CAP), MRNA, LNP-S, PF, 30 MCG/0.3 ML SHARON-SUCROSE, IM 11/05/2021 PFIZER COVID-19 (ORIGINAL FO RMULATION, PURPLE CAP) mRNA, LNP-S, PF, 30 MCG/0.3 ML DOSE 05/05/2021,10/30/2020,10/02/2020 PFIZER COVID-19 BIVALENT (12 +) mRNA, LNP-S, PF, 30 MCG/0.3 ML DOSE 05/20/2022 Pneumococcal (Prevnar 20) 07/31/2022 Shingrix 05/25/2023,10/19/2022 Tdap (Generic) 05/25/2023 Family History Medical History Relation Comments Cancer Father Hypertension Maternal Grandmother Heart Disease Mother Arthritis Sister 1 Arthritis Sister 2 Miscarriages / Stillbirths Sister 2 Relation Status Comments Father Maternal Grandmother Mother Sister 1 Sister 2 Social History Tobacco Use Types Packs/Day Years Used Date Smoking Tobacco: Never Smokeless Tobacco: Never Tobacco Cessation:Counseling Given: Yes Alcohol Use Standard Drinks/Week Comments Not Currently [...] Date Recorded Patient Health Questionnaire-2 Score 0 08/07/2024 [facility] - Occupational Stress Questionnaire Answer Date Recorded [...] place to sleep or slept in a correction (including now)? No 11/29/2022 Sex and Gender Information Value Date Recorded Sex Assigned at Male 08/16/2024 9:52 AM LIVESTOCK BREEDER Legal Sex Male 12:38 PM LIVESTOCK BREEDER Gender Identity Not on file Sexual Orientation Not on file Occupation Industry Job Start Date Job End Date Retired Not on file Not on file Not on file Last Filed Vital Signs Vital Sign Reading Time Taken Comments Blood Pressure 128/75 08/07/2024 1:40 PM LIVESTOCK BREEDER Pulse 52 08/07/2024 1:40 PM LIVESTOCK BREEDER Temperature 36.2 C (97.1 F) 08/07/2024 1:40 PM LIVESTOCK BREEDER Respiratory Rate 16 08/07/2024 1:40 PM LIVESTOCK BREEDER Oxygen Saturation 100% 08/07/2024 1:40 PM LIVESTOCK BREEDER Inhaled Oxygen Concentration - - Weight 98.7 kg (217 lb 9.6 oz) 08/07/2024 1:40 P M LIVESTOCK BREEDER Height 167.6 cm (5' 6 ) 02/04/2024 11:08 AM CDT Body Mass Index 35.12 02/04/2024 11:08 AM CDT Plan of Treatment Upcoming Encounters Date Type Department Care Team (Late st Contact Info) Description 10/25/2024 1:00 PM CDT Office Visit [facility] Orthopedic & Sports Medicine - [address] [place] [address] Igor Russo PA [address] [place] [phone] 10/30/2024 10:10 AM CDT Laboratory Only [facility] [address] [place] [address] Maco Pack MD [facility] [facility] [place] [address] 11/06/2024 11:40 AM CDT Office Visit [facility] [address] [facility] [place] [address] Maco Pack MD [address] [facility] [place] [address] Health Maintenance Due Date Last Done Comments Diabetes: Retinopathy Eye Exam 09/24/1973 Annual Medicare Wellness Visit 09/30/2022 09/29/2021 Lipid Panel 04/14/2024 04/14/2023, 03/27, 10/05/2022, Additional history exists Kidney Health Evaluation 10/10/2024 10/11/2023 Hemoglobin A1C 02/04/2025 08/07/2024, 01/23, 10/11/2023, Additional history exists RSV Immunization or 60+ Years (1 - 1-dose 75+ series) 09/24/2030 Colorectal Cancer Screening Colonoscopy (10 Years) 02/05/2031 02/05/2021 DTaP, Tdap and Td Vaccines (2 - Td or Tdap) 05/25/2033 05/25/2023 Pneumococcal Vaccine: 65+ Years Completed 07/31/2022 Zoster Vaccines Completed 05/25/2023, 10/19/2022 Hepatitis C Completed 10/11/2023 Influenza Adult Completed 04/18/2024, 07/26, 05/20/2022, Additional history exists COVID-19 Vaccine Completed 08/07/2024, , 05/20/2022, Additional history exists PHQ-2 (Physician [place]) Completed 08/07/2024 Meningococcal B Vaccine Aged Out No l onger eligible based on patient's age to complete this topic Meningococcal Vaccine Aged Out No laura erica eligible based on patient's age to complete this topic RSV Immunizations Under 20 Months Aged Out No longer eligible based on patient's age to complete this topic Goals Goal Patient Goal Type Associated Problems Recent Progress Patient-Stated? Author Patient will return to prior living situation and remain independent in ADLs upon discharge from hospital Lifestyle No Shweta Verma RN Medical Devices Implanted Type Area Client Relationship Consultant Device Identifier Shelf Expiration Date Model / Serial / Lot Stent Ureteral 6fr 26cm Pigtl Crv Taper Tip Bldr Mrk - [id number] Implanted:Qty : 1 on 11/27/2022 by Bowen Bryant MD at [facility] [employer] Stent Right: Ureter [employer] [id number] 08/12/2025 [id number] / [id number] Procedures Procedure Name Priority Date/Time Associated Diagnosis Comments BASIC METABOLIC PANEL Routine 08/16/2024 10:05 AM LIVESTOCK BREEDER Calcium kidney stone HEMOGLOBIN, GLYCOSYLATED Routine 08/07/2024 Type 2 diabetes mellitus without complication, without long-term current use of insulin ([facility] H[facility]/HCC) COLLECT.CAPILLARY (FNGR,HEEL,EAR) Routine 08/07/2024 Type 2 diabetes mellitus without complication, without long-term current use of insulin ([facility] H[facility]/HCC) HEPATITIS PANEL,ACUTE Routine 10/11/2023 11:59 AM CDT Encounter for hepatitis C screening test for low risk patient LIPID PANEL Routine 04/14/2023 1:42 PM CDT Type 2 diabetes mellitus without complication, without long-term current use of insulin COLONOSCOPY GENERIC (SCAN ORDER) Routine 02/05/2021 from Last 3 Months or Most Recently Relevant to Health Maintenance Results * (ABNORMAL) BASIC METABOLIC PANEL (08/16/2024 10:05 AM LIVESTOCK BREEDER) GLUCOSE 101(H) 70 - 99 MG/DL 08/16/2024 4:25 PM LIVESTOCK BREEDER [facility] BUN 19(H) 7 - 18 MG/DL 08/16/2024 4:25 PM [facility] CREATININE S/P/B 1.12 0.7 - 1.3 MG/DL 08/16/2024 4:25 PM [facility] SODIUM S/P/B 140 136 - 145 MMOL/L 08/16/2024 4:25 PM [facility] POTASSIUM S/P/B 3.6 3.5 - 5.1 MMOL/L 08/16/2024 4:25 PM LIVESTOCK BREEDER [facility] CHLORIDE S/P/B 107 97 - 115 MMOL/L 08/16/2024 4:25 PM [facility] CO2 27.5 21 - 32 MMOL/L 08/16/2024 4:25 PM [facility] CALCIUM S/P/B 9.2 8.5 - 10.1 MG/DL 08/16/2024 4:25 PM [facility] ANION GAP 5.5 2 - 10 MMOL/L 08/16/2024 4:25 PM [facility] BUN CREATININE RATIO 17.0 6 - 26 08/16/2024 4:25 PM [facility] GFR ESTIMATE 72(L) >90 ML/MIN/1.7 3 M2 08/16/2024 4:25 PM [facility] Comment: NOTE: eGFR is not calculated for patients <18 years of age or gender unknown. This is an estimated GFR calculation using the new CKD EPI creatinine equation without race and so does not require a correction factor for race. This estimated GFR should not be used for calculating drug doses. 08/16/2024 10:0 5 AM LIVESTOCK BREEDER us Bowen Bryant MD LABORATORY Final Res ult [facility] [address] [place] [address], [place] [phone] * A1C (BACK OFFICE) (08/07/2024) HGB A1C 6.5 % [place] 08/07/2024 us Maco Pack MD LABORATORY Edited Result - Final [place] [address] [place] [address], [place] [phone] * COLLECT.CAPILLARY (FNGR,HEEL,EAR) (08/07/2024) us Maco Pack MD PROCEDURES-UNRESULTED Final Re sult Performing Organization Address [facility]/ZIP Co de Phone Number [facility] * HEPATITIS PANEL,ACUTE (10/11/2023 11:59 AM CDT) HEPATITIS B SURFACE AG NON-REACTI VE NON-REACTI VE 10/11/2023 1:53 PM CDT [facility] HEP B CORE IGM NON-REACTI VE NON-REACTI VE 10/11/2023 1:54 PM CDT [facility] HAV IGM NON-REACTI VE NON-REACTI VE 10/11/2023 1:54 PM CDT [facility] HEPATITIS C AB NON-REACTI VE NON-REACTI VE 10/11/2023 1:54 PM CDT [facility] 10/11/2023 11:5 9 AM CDT us Maco Pack MD LABORATORY Final Result Performing Organization Address City/[facility]/ZIP Co de Phone Number [facility] [address] [place] [address], [place] [phone] * LIPID PANEL (04/14/2023 1:42 PM CDT) [facility] CHOLESTEROL 121 0 - 199 MG/DL [facility] TRIGLYCERIDES 72 0.00 - 150.00 MG/DL [facility] Comment: NCEP REFERENCE VALUES FOR TRIGLYCERIDES: NORMAL: <150 MG/DL BORDERLINE HIGH: 150 - 199 MG/DL HIGH: 200 - 499 MG/DL VERY HIGH: >/= 500 MG/DL HDL 48 >40 MG/DL [facility] LDL (CALCULATED) 58 0 - 99 MG/DL [facility] Comment: CUTOFF VALUES RECOMMENDED BY THE NATIONAL CHOLESTEROL EDUCATION PROGRAM: DESIRABLE: CHOLESTEROL <200 MG/DL LDL <100 MG/DL BORDERLINE: CHOLESTEROL 200-239 MG/DL LDL 101-159 MG/DL HIGHER RISK: CHOLESTEROL >240 MG/DL LDL >160 MG/DL, HDL <40 MG/DL NON HDL CHOLESTEROL 73 NO REFERENCE RANGE MG/DL [facility] Comment: A REASONABLE GOAL FOR NON-HDL CHOLESTEROL IS ONE THAT IS 30 MG/DL HIGHER THAN THE LDL CHOLESTEROL GOAL. CHOL/HDL RATIO 2.5 0.0 - 5.0 . [facility] Comment: IS PATIENT FASTING?->YES ON NOVEMBER 17, 2022, [facility] CHANGED THE EQUATION FOR CALCULATING ESTIMATED LOW-DENSITY LIPOPROTEIN-CHOLESTEROL (LDL-C) FROM THE FRIEDEWALD EQUATION TO THE LEXI/HEATHER EQUATION. THIS NEW EQUATION IS ONLY VALID FOR LIPID PANELS WITH TRIGLYCERIDES < 400 MG/DL. STUDIES HAVE DEMONSTRATED THAT THIS NEW EQUATION WILL IMPROVE THE ACCURACY OF LDL-C, ESPECIALLY IN SCENARIOS WHEN LDL-C CONCENTRATIONS ARE RELATIVELY LOW (< 100 MG/DL), TRIGLYCERIDES ARE ELEVATED, OR PATIENT IS NON-FASTING. REFERENCES: - DAKOTA ELLIOTT, DUSTIN CASTRO, SHIRLEY CREWS, EMILY ORO, EMILY FOSS, NAT ESCALANTE, AND TINY VALADEZ. 2013. COMPARISON OF A NOVEL METHOD VS THE FRIEDEWALD EQUATION FOR ESTIMATING LOW-DENSITY LIPOPROTEIN CHOLESTEROL LEVELS FROM THE STANDARD LIPID PROFILE. AMBER: THE JOURNAL OF THE [employer] 310 (19): 2061-68. - LEXI V, CHIDI J, ADITI A, ROBBI M, DAISHA R, ANTHONY E, BORIS RS, ALLYSON SR, LEXI SS. FASTING VERSUS NONFASTING AND LOW-DENSITY LIPOPROTEIN CHOLESTEROL ACCURACY. CIRCULATION. 2018 JUL 27;137(1):10-19. 04/14/2023 1:42 PM CDT 04/15/2023 4:44 AM CDT Fredy Francisco MD LABORATORY Final Resul t [facility] [address] [place] [address], * COLONOSCOPY (02/05/2021) Fredy Francisco MD SCANNING Final Resul t [facility] ONBASE from Last 3 Months or Most Recently Relevant to Health Maintenance Insurance [facility]UMAN HUMANA [facility] HUMANA HUMANA Advance Directives * Full Code (Latest Code Status on File) Date Activated Date Inactivated Comments 11/26/2022 11:31 PM 11/29/2022 4:52 PM Care Teams [place] Former Machine Operator Relationship Specialty Start Date End Date Maco Pack MD [facility] [place] [id number] PCP - General FAMILY PRACTICE 10/11/23
--- OUTSIDE RECORDS SUMMARY | 2024-10-04 10:11 | XMS_ITS | Clinical Summary ---
Author Organization [facility] Address [address] [place] [address] Care Team Providers Care Business Area Director Name Role Phone Unavailable Primary Care Provider Unavailabl e Source Comments [facility],non-owned Affiliates and Associated Physician Practices is amultiple site organization consisting of ambulatory clinics and hospital sitesin [place], [place], [place]. This disclosure is being madepursuant to the Care Everywhere program and may not contain all information available regarding this patient. Last updated 18.[facility] Social History Tobacco Use Types Packs/Day Years Used Date Smoking Tobacco: Never Assessed Sex and Gender Information Value Date Recorded Sex Assigned at Not on file Gender Identity Not on file Sexual Orientation Not on file Plan of Treatment Health Maintenance Due Date Last Done Comments COLOGUARD (AGES 45-75) - COLON CA SCREENING 1955 COLON MONITORING 1955 COLONOSCOPY - COLON CA SCREENING 1955 CT COLONOGRAPHY - COLON CA SCREENING 1955 Colorectal Cancer Screening 1955 FIT - COLON CA SCREENING 1955 FLEX SIG - COLON CA SCREENING 1955 LIPID TESTING 1955 HEPATITIS C SCREENING 09/20/1973 DTAP/TDAP/TD VACCINES (1 - Tdap) 09/24/1974 PNEUMOCOCCAL VACCINE 50+ (1 of 1 - PCV) 09/24/2005 ZOSTER VACCINE (1 of 2) 09/24/2005 COVID-19 VACCINE (6 - 2023- season) 2024 05/20/2022, 11/05/2021, 05/05/2021, Additional history exists DEPRESSION SCREENING 07/26/2024 Respiratory Syncytial Virus (RSV) Vaccine Pt: or over 60 yrs (1 - 1-dose 75+ series) 09/24/2030 INFLUENZA VACCINE Completed 04/18/2024, , 05/20/2022 HEPATITIS B VACCINE Aged Out No longe r eligible based on patient's age to complete this topic HIB VACCINE Aged Out No longer eligi ble based on patient's age to complete this topic HPV VACCINE Aged Out No longer eligi ble based on patient's age to complete this topic MENINGOCOCCAL (Group B) VACCINE SHARED DECISION-MAKING Aged Out No longer eligible based on patient's age to complete this topic MENINGOCOCCAL GROUPS A/C/Y/W VACCINE Aged Out No longer eligible based on patient's age to complete this topic Juan Amanda Personal/Family Self 1955
--- OUTSIDE RECORDS SUMMARY | 2024-10-04 10:11 | XMS_ITS | Patient Health Summary ---
Author Organization [facility] Address [address] [place] [address] Care Team Providers Care Geological Sample Tester Name Role Phone Unavailable Primary Care Provider Unavailabl e Note from [facility],non-owned Affiliates and Associated Physician Practices is amultiple site organization consisting of ambulatory clinics and hospital sitesin [place], [place], [place]. This disclosure is being madepursuant to the Care Everywhere program and may not contain all information available regarding this patient. Last updated 18.[facility] Social History Tobacco Use Types Packs/Day Years Used Date Smoking Tobacco: Never Assessed Sex and Gender Information Value Date Recorded Sex Assigned at Not on file Gender Identity Not on file Sexual Orientation Not on file Procedures * URINALYSIS W/MICROSCOPIC NO CULTURE(Performed 06/02/2024) Performed for Kidney stones * COMPREHENSIVE METABOLIC PANEL(Performed 06/02/2024) Performed for Kidney stones Results * URINALYSIS W/MICROSCOPIC NO CULTURE (06/02/2024 1:08 PM CAR WASH MANAGER) Color UA Yellow Straw, Yellow 06/02/2024 1:56 PM CAR WASH MANAGER [facility] Clarity UA Clear Clear 06/02/2024 1:56 PM CAR WASH MANAGER [facility] Specific [place] UA 1.017 1.005 - 1.030 06/02/2024 1:56 PM CAR WASH MANAGER [facility] pH UA 7.0 5.0 - 8.0 pH 06/02/2024 1:56 PM CAR WASH MANAGER [facility] Protein UA Negative Negative 06/02/2024 1:56 PM CAR WASH MANAGER [facility] Glucose UA Negative Negative 06/02/2024 1:56 PM CAR WASH MANAGER [facility] Ketone UA Negative Negative 06/02/2024 1:56 PM [facility] Bilirubin UA Negative Negative 06/02/2024 1:56 PM [facility] Blood UA Negative Negative 06/02/2024 1:56 PM [facility] Nitrite UA Negative Negative 06/02/2024 1:56 PM [facility] Leukocyte Esterase Negative Negative 06/02/2024 1:56 PM [facility] Urobilinogen UA Negative Negative mg/dL 06/02/2024 1:56 PM [facility] RBC UA 0-2 None Seen, 0-2, 3-5 /HPF 06/02/2024 1:56 PM [facility] WBC UA 0-5 None Seen, 0-5 /HPF 06/02/2024 1:56 PM [facility] Squamous Epithelial Cells UA 0-2 None Seen, 0-2, 3-5 /HPF 06/02/2024 1:56 PM [facility] Mucus UA 1+ /LPF 06/02/2024 1:56 PM [facility] Urine URINE SPECIMEN OBTAINED BY CLEAN CATCH PROCEDURE / Unknown Collection / Unknown 06/02/2024 1:08 PM CAR WASH MANAGER 06/02/2024 1:28 [address] CAR WASH MANAGER [facility] - 06/02/2024 1:56 PM CAR WASH MANAGER Osmin Hansen DO LAB - URINAL YSIS ORDERABLES [facility] [address] [place] [address], [facility] [phone] * (ABNORMAL) COMPREHENSIVE METABOLIC PANEL (06/02/2024 1:04 PM CAR WASH MANAGER) BUN 16 7 - 26 mg/dL 06/02/2024 1:48 PM [facility] Creatinine 1.02 0.71 - 1.16 mg/dL 06/02/2024 1:48 PM [facility] Sodium 142 136 - 145 mmol/L 06/02/2024 1:48 PM [facility] Potassium 4.2 3.5 - 4.5 mmol/L 06/02/2024 1:48 PM [facility] Chloride 106 98 - 107 mmol/L 06/02/2024 1:48 PM [facility] CO2 26 22 - 29 mmol/L 06/02/2024 1:48 PM [facility] Glucose 104(H) 70 - 99 mg/dL 06/02/2024 1:48 PM [facility] Calcium 9.7 8.4 - 10.2 mg/dL 06/02/2024 1:48 PM [facility] Protein Total 7.6 6.0 - 8.3 g/dL 06/02/2024 1:48 PM [facility] Albumin 4.0 3.4 - 5.0 g/dL 06/02/2024 1:48 PM [facility] Bilirubin Total 0.5 0.2 - 1.2 mg/dL 06/02/2024 1:48 PM [facility] Alkaline Phosphatase 68 40 - 150 U/L 06/02/2024 1:48 PM [facility] ALT 14 5 - 55 U/L 06/02/2024 1:48 PM [facility] AST 16 5 - 34 U/L 06/02/2024 1:48 PM [facility] Anion Gap 10 6 - 16 06/02/2024 1:48 PM [facility] BUN/Creatinine Ratio 16 7 - 23 06/02/2024 1:48 PM [facility] Osmolality Calculated 295 275 - 295 mOsm/kg 06/02/2024 1:48 PM [facility] Albumin/Globulin Ratio 1.1 1.1 - 2.3 06/02/2024 1:48 PM [facility] eGFR by CKD-EPI 80(L) >=90 mL/min/1.7 3 m2 06/02/2024 1:48 PM [facility] Blood BLOOD SPECIMEN / Unknown Lab Venipuncture / Unknown 06/02/2024 1:04 PM CAR WASH MANAGER 06/02/2024 1:22 PM [facility] Osmin Hansen DO LAB - CHEMIS TRY ORDERABLES [facility] [address] [place] [address], [facility] [phone]
--- NOTE | 2024-10-31 12:06 | WPDSLEEPSTUD ---
Sleep Study Date of Study: 10/04/24 Ordering Provider: Barney Huber, Interpreting Physician: Sharon Castaneda DO Sleep Study Type: Polysomnogram Height: 1.68 m Weight: 97.522 kg Body Mass Index: 34.7 Neck Circumference (inches): 17 [place]: 22 Reason for Sleep Study Daytime hypersomnia despite being on CPAP. Previously diagnosed with narcolepsy and has failed multiple wake-promoting agents. Sleep History The patient is a 69-year-old male that had a sleep study ordered by his ENT physician for evaluation of excessive daytime sleepiness. The patient is currently on AutoPAP 16-20 cm H2O. He rarely awakens from sleep short of breath. He denies awakening at night with heartburn, belching or cough. He constantly snores loudly enough that others complain. He denies having trouble sleeping when he has a cold. He rarely wakes up gasping for air throughout the night. He constantly has breathing problems at night observed by himself or others. He rarely sweats excessively at night. He rarely has heart palpitations or irregular heartbeats during the night. He frequently falls asleep during the day but rarely while driving. He denies cataplexy. He constantly has trouble at school or work due to sleepiness. He rarely feels unable to move while waking up or falling asleep. He denies feeling afraid of going to sleep. He rarely has nightmares. He frequently has thoughts racing through his mind. He frequently notices parts of his body jerk. He denies kicking during the night. He denies having crawling and aching feelings in his legs but occasionally has leg pain during the night. He denies grinding his teeth during sleep and denies awakening with morning jaw pain. He is constantly bothered by pain during the day and rarely awakened by pain during the night. He rarely wakes up with sore or achy muscles. He occasionally wakes up with pain in the neck, spine and other joints. He does not have a set bedtime. He states that he is able to fall asleep relatively quickly. He wakes up twice throughout the night at most urinate. He wakes up at 10:00 a.m. daily. He gets 9 hours of sleep per night. He does not stay in bed after waking up morning. He currently lives with his . He denies consuming any caffeinated beverages within 2 hours of bedtime. He denies engaging in physical exercise before bedtime. He will watch television before falling asleep. He denies taking naps in afternoon or the evening. He denies consuming any caffeinated beverages throughout the day. He denies tobacco and recreational drug use. Sleep Procedure A full night polysomnogram using the [place] multi-channel system recorded the standard physiologic parameters including EEG, EOG, submentalis EMG, anterior tibialis EMG, EKG, body position, nasal and oral airflow using nasal pressure sensor and thermistor.? Respiratory parameters of chest and abdominal movements were recorded with Respiratory Inductance Plethysmography belts. Oxygen saturation was recorded by pulse oximetry. Video monitoring was also performed. Sleep stages, periodic limb movements, and EEG arousals were scored in 30 second epochs according to the criteria of the AASM Scoring Manual. The Apnea-Hypopnea Index was calculated using [facility] guidelines for definition of hypopnea with 4% O2 desaturations while scoring respiratory events. Sleep Architecture The total recording time was 454.6 minutes.? The total sleep time was 382.0 minutes. Sleep latency was 2.6 minutes. REM latency was 70.5 minutes. Sleep efficiency was 84.0%. The patient had 45 awakenings for an awakening index of 7.1. Wake after Sleep Onset time was 70.5 minutes. The patient spent 91.0 minutes, 23.8% of total sleep time in Stage N1. The patient spent 253.0 minutes, 66.2% in Stage N2. The patient spent 0.0 minutes, 0.0% in Stage N3. The patient spent 38.0 minutes, 9.9% in Stage REM. No SOREM was present during this study. Respiratory Analysis The patient had 1 hypopnea and 1 mixed apnea for an overall Apnea Hypopnea Index of 0.3 events per hour while on AutoPAP 16-20 cm H2O. The REM Apnea Hypopnea Index was 1.6. The NREM Apnea Hypopnea Index was 0.2. The patient had a Central Apnea Hypopnea Index of 0. There was no evidence of Armando-Kinsey Respirations. Arousals There were 214 total arousals for an arousal index of 33.6. There were 104 spontaneous arousals for an index of 16.3. ?There were 1 arousals due to respiratory events for an index of 0.2. There were 52 arousals due to periodic limb movements for an index of 8.2.? There were 19 arousals due to isolated limb movements for an index of 3.0. Periodic Limb Movements The patient had 61 isolated limb movements with an index of 9.6. The patient had 285 periodic limb movements with index of 44.8, which is elevated (normal < 15). Patient had a total of 346 limb movements with a total limb movement index of 54.3. Oximetry Data The patient had an average oxygen saturation of 95.6% in sleep with a minimum oxygen saturation of 94.0% and a maximum oxygen saturation of 98.0%. The patient had 1 oxygen desaturations that were 4% or greater resulting in an Oxygen Desaturation Index of 0.2.? The patient spent 0 minutes of total sleep time with an oxygen saturation below 88%. Snoring Profile Mild snoring was present intermittently throughout the study. Cardiac Profile The EKG showed normal sinus rhythm with sinus arrhythmia. The patient had an average pulse rate of 50.7 bpm with a minimum pulse rate of 43.0 bpm and a maximum pulse rate of 68.0 bpm. EEG Profile No signs of seizure activity seen. Assessment and Plan Assessment and Plan (1) ANDREY (obstructive sleep apnea): Code(s): G47.33 - Obstructive sleep apnea (adult) (pediatric) Status: Acute Assessment and Plan: While on AutoPAP 16-20 cm H2O, the patient had an overall AHI of 0.3 with desaturation down to 94%. His sleep apnea is well controlled on his current pressure settings. (2) Excessive daytime sleepiness: Code(s): G47.19 - Other hypersomnia Status: Acute Assessment and Plan: The patient had a sleep latency of 2.6 minutes during this study. The REM latency was 70.5 minutes. No SOREM was present during this study. Please see MSLT report. (3) PLMD (periodic limb movement disorder): Code(s): G47.61 - Periodic limb movement disorder Status: Acute Assessment and Plan: The patient had a significant number of limb movements during the study with the majority being periodic in nature. The patient's sleep history does not suggest Restless Leg Syndrome. Approximately 18% of the periodic limb movements caused arousals in the patient's sleep. I recommend that the patient have a serum ferritin drawn for evaluation of iron deficiency anemia. If the patient has a serum ferritin less than 75 ng/mL, I recommend starting a daily iron supplement and a Vitamin C supplement for better absorption. If the serum ferritin is greater than 75 ng/mL, I recommend starting a dopamine agonist and titrating the dose until symptoms resolve. There are nonpharmacological methods to treat limb movements including daily exercise, stretching calf muscles before bed, avoiding excessive amounts of caffeine and alcohol, vitamin B supplementation, magnesium lotion massaged into legs before bed, and use of a weighted blanket. Data The data obtained during this sleep study is adequate for interpretation. Certification This sleep study has been reviewed by a board certified sleep medicine physician.
[2024-10-31 12:07] VITALS: BMI 34.7
[2024-10-31 12:24] VITALS: BMI 34.7
--- NOTE | 2024-10-31 12:24 | WPDSLEEPSTUD ---
Sleep Study Date of Study: 10/04/24 Ordering Provider: Barney HuberMD Interpreting Physician: Sharon Castaneda DO Sleep Study Type: Multiple Sleep Latency Test Height: 1.68 m Weight: 97.522 kg Body Mass Index: 34.7 Neck Circumference (inches): 17 [place]: 22 Reason for Sleep Study Daytime hypersomnia despite being on CPAP. Patient states that he was previously diagnosed with narcolepsy and has failed multiple wake-promoting agents. Sleep History Please see sleep history on PSG report from the previous night. Sleep Procedure The recording montage for the MSLT includes central EEG (C3-A2, C4-A1) and occipital (O1-A2, O2-A1) derivations, left and right eye electrooculograms (EOGs), mental/submental electromyogram (EMG), and electrocardiogram (EKG). Sleep Architecture Nap Summary: Nap trials started at 07:13:07AM following an overnight polysomnogram that ended at 05:39:44AM with an overall Apnea Hypopnea index of 0.3 events per hour. Sleep onset REM (SOREM) did not occur during the overnight polysomnogram. Nap 1 commenced at 07:13:07AM. Sleep latency was 9.9 minutes. REM sleep did not occur. Total sleep time was 6.5 minutes. Nap was terminated at 07:38:43AM. The patient reported that sleep occurred. The patient reported that dreaming did not occur. Nap 2 commenced at 09:13:39AM. Sleep latency was 4.9 minutes. REM sleep did not occur. Total sleep time was 8.9 minutes. Nap was terminated at 09:33:34AM. The patient reported that sleep occurred. The patient reported that dreaming did not occur. Nap 3 commenced at 11:16:17AM. Sleep latency was 9.8 minutes. REM sleep did not occur. Total sleep time was 8.9 minutes. Nap was terminated at 11:41:55AM. The patient reported that sleep occurred. The patient reported that dreaming did not occur. Nap 4 commenced at 01:13:04PM. Sleep latency was 5.5 minutes. REM sleep did not occur. Total sleep time was 14.4 minutes. Nap was terminated at 01:34:30PM. The patient reported that sleep occurred. The patient reported that dreaming did not occur. Nap 5 commenced at 03:13:54PM. Sleep latency was 4.7 minutes. REM sleep occurred. REM latency was 14.0 minutes. Total sleep time was 12.5 minutes. Nap was terminated at 03:34:04PM. The patient reported that sleep occurred. The patient reported that dreaming did not occur. The patient achieved sleep in 5 of 5 nap opportunities. The overall average sleep latency was 7.0 minutes. The patient achieved REM sleep (SOREM) in 1 nap. The overall average REM latency was 14.0 minutes. Respiratory Analysis N/A Arousals N/A Periodic Limb Movements N/A Oximetry Data N/A Snoring Profile N/A Cardiac Profile N/A EEG Profile EEG was normal and showed no signs of seizure activity. Assessment and Plan Assessment and Plan (1) Excessive daytime sleepiness: Code(s): G47.19 - Other hypersomnia Status: Acute Assessment and Plan: The patient achieved sleep in 5 of 5 nap opportunities. The overall average sleep latency was 7.0 minutes. The patient achieved REM sleep (SOREM) in 1 nap. There was no SOREM present on the polysomnogram from the night prior. The patient did not meet the diagnostic criteria for narcolepsy. Please see the polysomnogram report from the night prior. Data The data obtained during this sleep study is adequate for interpretation. Certification This sleep study has been reviewed by a board certified sleep medicine physician.
== END 2024-10-05 16:45 | disposition home or self-care (01) ==
PROVIDERS: Visit Provider Otolaryngology
DX: G47.19 Other hypersomnia (principal); G47.33 Obstructive sleep apnea (adult) (pediatric); G47.61 Periodic limb movement disorder
CPT/HCPCS: 95805; 95810